=== PATIENT | female | born 1965 | race Caucasian/White ===

== ENCOUNTER 2016-08-25 20:14 | Emergency (ER) | payer MEDICAID ==
[2016-08-25 20:27] VITALS: TEMP 98.2
[2016-08-25] MEDS ORDERED: Neomycin/Polymyxin/Hydrocort Otic Soln BOTTLE AD STA (20:36)
--- NOTE | 2016-08-25 21:16 | C.PDOC ---
History Of Present Illness 51 y/o female presents to ED with complaints of right ear ache x4 days. Pt denies ear discharge, fever, chills, sore throat, cough, headache, neck pain or any other complaints. Time Seen by Provider: 08/25/16 20:30 Chief Complaint (Nursing): ENT Problem History Per: Patient History/Exam Limitations: None Onset/Duration Of Symptoms: Days Current Symptoms Are (Timing): Still Present Quality (Ear): denies: Discharge Symptoms Have Been: Continuous Severity: Mild Anticoagulant/Antiplatlet Use?: No Past Medical History Reviewed: Historical Data, Nursing Documentation, Vital Signs Vital Signs: Last Vital Signs Temp 98.2 F 08/25/16 20:24 Pulse 60 08/25/16 21:41 Resp 18 08/25/16 21:41 BP 146/89 08/25/16 21:41 Pulse Ox 100 08/26/16 11:37 Family History: States: Unknown Family Hx - Social History Hx Tobacco Use: No Hx Alcohol Use: No Hx Substance Use: No Review Of Systems Constitutional: Negative for: Fever, Chills ENT: Positive for: Ear Pain (right). Negative for: Throat Pain Respiratory: Negative for: Cough Musculoskeletal: Negative for: Neck Pain Neurological: Negative for: Headache Physical Exam - Physical Exam Appears: Non-toxic, No Acute Distress Skin: Warm, Dry, No Rash Head: Atraumatic, Normacephalic Ear(s): Left: Normal, Right: Other (canal swollen, TM not visualized, no mastoid tenderness) Nose: Normal Oral Mucosa: Moist Throat: Normal, No Erythema Neck: Normal, Normal ROM, Supple Chest: Symmetrical Cardiovascular: Rhythm Regular, No Murmur Respiratory: Normal Breath Sounds, No Rales, No Rhonchi, No Wheezing Neurological/Psych: Oriented x3, Normal Speech ED Course And Treatment O2 Sat by Pulse Oximetry: 100 (room air) Pulse Ox Interpretation: Normal Progress Note: Plan: amoxicillin, neomycin Disposition - Disposition Referrals: Ro Parrish MD [Medical Doctor] - Disposition: HOME/ ROUTINE Disposition Time: 21:45 Condition: STABLE Additional Instructions: cuatro gotas, cuatro veces por lester, hasta termino. siguemiente con crowe medico primario, o especialidid de oido (ENT). regresar a kathe de emergencia si sintomas mas peor. Prescriptions: Amoxicillin [Amoxil 500 mg Cap] 500 mg PO Q8 #30 cap Ibuprofen [Motrin Tab] 600 mg PO Q8 #30 tab Instructions: Otitis Externa (ED) Print Language: JAPANESE - Clinical Impression Clinical Impression: Otitis externa - PA / MANAGEMENT NURSE RN / Resident Statement MD/DO has reviewed & agrees with the documentation as recorded. - Scribe Statement The provider has reviewed the documentation as recorded by the Scribe Rene montilla All medical record entries made by the Scribwoody were at my direction and personally dictated by me. I have reviewed the chart and agree that the record accurately reflects my personal performance of the history, physical exam, medical decision making, and the department course for this patient. I have also personally directed, reviewed, and agree with the discharge instructions and disposition.
[2016-08-25 21:41] VITALS: BP 146/89; PULSE 60; RESP 18
[2016-08-26 11:38] VITALS: O2SAT 100
== END 2016-08-25 21:53 | disposition home or self-care (01) ==
LOC: C.ER 20:14
DX: H60.91 Unspecified otitis externa, right ear (principal)

== ENCOUNTER 2017-12-26 16:16 | Emergency (ER) | payer MEDICAID ==
[2017-12-26 16:27] VITALS: O2SAT 100
--- NOTE | 2017-12-26 17:37 | C.PDOC ---
History Of Present Illness 52 y/o female c/o 3 days of left ear pain radiating to left side face with subjective fever and decreased hearing from left ear. denies drainage. Time Seen by Provider: 12/26/17 16:41 Chief Complaint (Nursing): ENT Problem History Per: Patient History/Exam Limitations: None Onset/Duration Of Symptoms: Days (3) Current Symptoms Are (Timing): Still Present Quality (Mouth/Throat): denies: Tenderness, Redness Symptoms Have Been: Continuous Severity: Moderate Past Medical History Reviewed: Historical Data, Nursing Documentation, Vital Signs Vital Signs: Last Vital Signs Temp 98.0 F 12/26/17 16:23 Pulse 78 12/26/17 16:23 Resp 18 12/26/17 16:23 BP 145/70 12/26/17 16:23 Pulse Ox 100 12/26/17 16:23 - Medical History PMH: No Chronic Diseases Family History: States: Unknown Family Hx - Social History Hx Tobacco Use: No Hx Alcohol Use: No Hx Substance Use: No Review Of Systems Constitutional: Negative for: Fever, Chills ENT: Positive for: Ear Pain. Negative for: Ear Discharge, Mouth Swelling, Throat Pain, Throat Swelling Skin: Negative for: Rash Neurological: Negative for: Weakness, Numbness Physical Exam - Physical Exam Appears: Non-toxic, No Acute Distress Skin: Warm, Dry Head: Atraumatic, Normacephalic, Other (no mastoid tenderness bilaterally) Eye(s): bilateral: Normal Inspection Ear(s): Left: Other (tm rupture.no fluid, no erythema in canal. no canal erythema ), Right: Normal Nose: No Discharge Oral Mucosa: Moist Tongue: Normal Appearing Lips: Normal Appearing Teeth: Normal Dentition Gingiva: Normal Appearing Throat: No Erythema, No Exudate Neck: Supple Neurological/Psych: Oriented x3, Normal Speech, Normal Cognition ED Course And Treatment O2 Sat by Pulse Oximetry: 100 Medical Decision Making Medical Decision Making: pt with left tm rputure. d/c home, with ent f/u and nsaids Disposition Counseled Patient/Family Regarding: Diagnosis, Need For Followup, Rx Given - Disposition Referrals: Abundio Gooden MD [Staff Provider] - Disposition: HOME/ ROUTINE Disposition Time: 17:41 Condition: GOOD Additional Instructions: Por favor, no se moje la oreja izquierda en la ducha. No ponga agua en el odo, no ponga qtips en el odo. [place] ibuprofeno para el dolor. En colaboracin con el Dr. Gooden (especialista en odos). llame para travon jolly. Please do not get left ear wet in shower. Do not get water in ear, don't put qtips in ear. Take ibuprofen for pain. FOllow up with Dr Gooden (learning and development specialist). call for an appointment. Prescriptions: Ibuprofen [Motrin] 600 mg PO TID #30 tab Instructions: Ruptured Eardrum (DC) Forms: [employer] (Guyanese), Gen Discharge Inst Guyanese Print Language: BOTSWANAN - Clinical Impression Clinical Impression: Ruptured or perforated eardrum
[2017-12-26 17:46] VITALS: BP 129/82; PULSE 76; RESP 20; TEMP 98.5
== END 2017-12-26 17:55 | disposition home or self-care (01) ==
LOC: C.ER 16:16
DX: H72.92 Unspecified perforation of tympanic membrane, left ear (principal)

== ENCOUNTER 2018-05-14 13:57 | Emergency (ER) | payer MEDICAID ==
[2018-05-14] MEDS ORDERED: Naproxen 550 mg Tab PO STA (15:06)
[2018-05-14] MEDS ORDERED: Naproxen 550 mg Tab PO ONE (15:17)
[2018-05-14] MEDS ORDERED: Lidocaine 5% Patch TD STA (15:53)
--- NOTE | 2018-05-14 15:57 | C.PDOC ---
History Of Present Illness 53 year old female presents to ED with complaint of rib pain for the past 2 days. Patient states that she slipped and fell in the bathroom and hit her later ribs on the bathroom counter. Patient denies SOB, pain being worse with deep breaths or movement, head injury , or loss of consciousness. Time Seen by Provider: 05/14/18 14:30 Chief Complaint (Nursing): Back Pain History Per: Patient History/Exam Limitations: no limitations Onset/Duration Of Symptoms: Days (2) Current Symptoms Are (Timing): Still Present Quality Of Discomfort: "Pain" Previous Symptoms: None Past Medical History Reviewed: Historical Data, Nursing Documentation, Vital Signs Vital Signs: Last Vital Signs Temp 98.3 F 05/14/18 14:24 Pulse 79 05/14/18 14:24 Resp 18 05/14/18 14:24 BP 123/76 05/14/18 14:24 Pulse Ox 100 05/14/18 14:24 - Medical History PMH: No Chronic Diseases Surgical History: No Surg Hx Family History: States: Unknown Family Hx - Social History Hx Tobacco Use: No Hx Alcohol Use: No Hx Substance Use: No - Immunization History Hx Tetanus Toxoid Vaccination: No Hx Influenza Vaccination: Yes Hx Pneumococcal Vaccination: No Review Of Systems Constitutional: Negative for: Fever, Chills, Weakness Cardiovascular: Positive for: Other (pain to the lateral ribs) Respiratory: Negative for: Shortness of Breath Neurological: Negative for: Weakness, Numbness, Headache Physical Exam - Physical Exam Appears: Non-toxic, Other (moderate pain) Skin: Normal Color, Warm, Dry Head: Atraumatic, Normacephalic Neck: Normal ROM, No Paracervical Tenderness, Supple Chest: Tenderness (lateral inferior ribs tender to palpation, no crepitus, mild ecchymosis) Cardiovascular: Rhythm Regular, No Murmur Respiratory: No Accessory Muscle Use, No Rales, No Rhonchi, No Wheezing Gastrointestinal/Abdominal: Soft, No Tenderness Extremity: Capillary Refill (<2 seconds) Neurological/Psych: Oriented x3, Normal Speech, Normal Cognition ED Course And Treatment O2 Sat by Pulse Oximetry: 100 (in RA) - Other Rad Ribs and Chest X-ray X-Ray: Interpreted by Me, Viewed By Me Interpretation: Accession No. : [id number]. Patient Name / ID : SCOT DRISCOLL / [id number]. Exam Date : 05/14/2018 15:10:35 ( Approved ). Study Comment : Sex / Age : F / 53Y. Creator : Andrea Nye MD. Dictator : Andrea Nye MD. Sprinkler Installer : Food Beverage Manager : Andrea Nye MD. Approver2 : Report Date : 05/14/2018 17:31:18. My Comment : . Date of service: 05/14/2018. PROCEDURE: Radiographs of the Chest and Left Ribs. HISTORY: LEFT RUB PAIN AFTER FALL. COMPARISON: None available. TECHNIQUE: Frontal radiograph of the chest and multiple oblique radiographs of the left ribs were obtained. 4 views obtained. FINDINGS: LEFT RIBS: Contiguous fractures 8th 9th and 10th ribs on the left, posterior laterally. LUNGS: Clear. PLEURA: No pneumothorax or pleural fluid. CARDIOVASCULAR: Normal cardiac size. No pulmonary vascular congestion. No aortic atherosclerotic calcification present. OTHER FINDINGS: None. IMPRESSION: Contiguous posterior lateral left lower rib fractures. . Concordant results with the preliminary interpretation rendered by the emergency department physician\\YING at the conclusion of the procedure. Progress Note: Ribs and Chest X-ray ordered for patient. Patient given Naproxen and lidoderm. Re-evaluation. Patient feels better. Discussed results and plan with patient who expresses understanding. All questions answered and there is agreement with the plan to discharge home with instructions. Patient stable for discharge. Return if symptoms persist or worsen. Disposition Counseled Patient/Family Regarding: Studies Performed, Diagnosis, Need For Followup, Rx Given - Disposition Referrals: Sergio Pisano [Staff Provider] - Disposition: HOME/ ROUTINE Disposition Time: 16:00 Condition: STABLE Additional Instructions: FOLLOW UP WITH YOUR DOCTOR IN 1-2 DAYS USE MEDICATIONS NEEDED FOR PAIN RETURN TO EMERGENCY ROOM IF YOUR SYMPTOMS WORSEN SEGUIR CON JUAREZ MDICO EN 1-2 LEWIS UTILICE MEDICAMENTOS JORDEN SE NECESITA PARA EL DOLOR VUELVA A LA LIBRA DE EMERGENCIA SI CARLOS SNTOMAS SE HACEN PEOR Prescriptions: Hydrocodone/Acetaminophen [Hydrocodone-Acetamin 5-325 mg] 1 each PO Q6 PRN #15 tablet PRN Reason: PAIN Lidocaine 5% [Lidoderm] 1 patch TOP DAILY PRN #10 patch PRN Reason: pain Naproxen [Naprosyn] 1 tab PO BID PRN #25 tab PRN Reason: Pain Instructions: Rib Fractures in Adults Forms: [employer] (Georgian) Print Language: TUVALUAN - POA Present On Arrival: Falls Or Trauma - Clinical Impression Clinical Impression: Multiple fractures of ribs - Scribe Statement The provider has reviewed the documentation as recorded by the Scribe (Marline Diaz) All medical record entries made by the Scribe were at my direction and personally dictated by me. I have reviewed the chart and agree that the record accurately reflects my personal performance of the history, physical exam, medical decision making, and the department course for this patient. I have also personally directed, reviewed, and agree with the discharge instructions and disposition.
[2018-05-14] MEDS ORDERED: Lidocaine 5% Patch TD ONE (16:15)
[2018-05-14 17:10] VITALS: BP 121/77; PULSE 71; RESP 16; TEMP 98
--- NOTE | 2018-05-14 17:35 | RAD ---
Date of service: 05/14/2018 PROCEDURE: Radiographs of the Chest and Left Ribs. HISTORY: LEFT RUB PAIN AFTER FALL COMPARISON: None available. TECHNIQUE: Frontal radiograph of the chest and multiple oblique radiographs of the left ribs were obtained. 4 views obtained. FINDINGS: LEFT RIBS: Contiguous fractures 8th 9th and 10th ribs on the left, posterior laterally. LUNGS: Clear. PLEURA: No pneumothorax or pleural fluid. CARDIOVASCULAR: Normal cardiac size. No pulmonary vascular congestion. No aortic atherosclerotic calcification present OTHER FINDINGS: None. IMPRESSION: Contiguous posterior lateral left lower rib fractures. Concordant results with the preliminary interpretation rendered by the emergency department physician procedure.
[2018-05-14 20:34] VITALS: O2SAT 100
== END 2018-05-14 17:09 | disposition home or self-care (01) ==
LOC: C.ER 13:57
DX: S22.42XA Multiple fractures of ribs, left side, initial encounter for closed fracture (principal); W01.198A Fall on same level from slipping, tripping and stumbling with subsequent striking against other object, initial encounter